=== PATIENT | female | born 1940 | race Hispanic/Latino ===

== ENCOUNTER → 2016-11-14 | Outpatient (CLI) | payer MEDICARE | LOC: GMAJ 10:38 | PROVIDERS: ATTEND Family Medicine | DX: E03.9 Hypothyroidism, unspecified (principal) ==

== ENCOUNTER → 2017-05-01 | Outpatient (CLI) | payer MEDICARE | END | disposition home or self-care (01) | LOC: GMAJ 10:45 | PROVIDERS: ATTEND Family Medicine | DX: E03.9 Hypothyroidism, unspecified (principal) ==

== ENCOUNTER → 2017-11-20 | Outpatient (CLI) | payer MEDICARE | LOC: GMAJ 11:27 | PROVIDERS: ATTEND Family Medicine | DX: E03.9 Hypothyroidism, unspecified (principal); E78.00 Pure hypercholesterolemia, unspecified ==

== ENCOUNTER → 2018-05-15 | Outpatient (CLI) | payer MEDICARE | LOC: GMAJ 10:32 | PROVIDERS: ATTEND Family Medicine | DX: E03.9 Hypothyroidism, unspecified (principal) ==